=== PATIENT | male | born 1995 | race Native Hawaiian/Other Pacific Islander ===

== ENCOUNTER 2017-01-14 14:00 | Emergency (ER) | payer OTHER ==
[2017-01-14 14:06] VITALS: BMI 27.1
[2017-01-14 14:09] VITALS: BP 140/81; PULSE 78; RESP 18; TEMP 98; O2SAT 99
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
== END 2017-01-14 15:16 | disposition home or self-care (01) ==
LOC: C.ER 14:00
DX: S93.602A Unspecified sprain of left foot, initial encounter (principal); V49.59XA Passenger injured in collision with other motor vehicles in traffic accident, initial encounter; Y93.9 Activity, unspecified; Y92.410 Unspecified street and highway as the place of occurrence of the external cause